=== PATIENT | female | born 1970 | race Caucasian/White ===

== ENCOUNTER 2018-10-19 10:05 | Emergency (ER) | payer MEDICAID, MEDICARE ==
[~2018-10-19] VITALS: Ht 154.9 cm; Wt 54.0 kg
[~2018-10-19 10:05] MED LIST: ACET-2119 PO; NICO-731 TOP; ONDA4VIA6 IV; POLY17PO10 PO; SENN8.6T61 PO
[2018-10-19 10:38] VITALS: BP 132/88
[2018-10-19] MEDS ORDERED: IBUP-1984 PO (10:44)
== END 2018-10-19 10:57 | disposition home or self-care (01) ==
LOC: ER 10:06
DX: H92.02 Otalgia, left ear (principal); R51 Headache; R50.9 Fever, unspecified; G89.29 Other chronic pain; M54.9 Dorsalgia, unspecified; F15.90 Other stimulant use, unspecified, uncomplicated; F11.90 Opioid use, unspecified, uncomplicated; Z88.6 Allergy status to analgesic agent; Z88.1 Allergy status to other antibiotic agents; Z88.2 Allergy status to sulfonamides; Z88.8 Allergy status to other drugs, medicaments and biological substances
CPT/HCPCS: 99282

== ENCOUNTER 2022-08-20 02:04 | Emergency (ER) | payer MEDICAID ==
[~2022-08-20] VITALS: Ht 154.9 cm; Wt 65.0 kg
[2022-08-20] MEDS ORDERED: ibuprofen tablet 400 MG TABLET PO ONE (03:15)
[2022-08-20] MEDS ORDERED: acetaminophen 325mg tablet PO ONE (03:15)
[2022-08-20] MEDS ORDERED: CefTRIAXone 1000mg IM Kit (w/lidocaine diluent) IM ONE (03:30)
[2022-08-20] MEDS: CEFTRIAXONE 500 MG VIAL IM ONE ×2 (03:31→03:33)
[2022-08-20] MEDS ORDERED: CEPH-585 PO (03:44)
[2022-08-20 03:58] VITALS: BP 124/76
[2022-08-21] MEDS ORDERED: CEPH-585 PO (10:39)
== END 2022-08-20 04:03 | disposition home or self-care (01) ==
LOC: ER 02:05
DX: L03.116 Cellulitis of left lower limb (principal); G89.29 Other chronic pain; M54.9 Dorsalgia, unspecified; F15.10 Other stimulant abuse, uncomplicated; Z88.5 Allergy status to narcotic agent; Z88.2 Allergy status to sulfonamides; Z79.899 Other long term (current) drug therapy
CPT/HCPCS: 96372; 99283; J0696